=== PATIENT | male | born 1990 | race Hispanic/Latino ===

== ENCOUNTER 2023-06-12 09:07 | Emergency (ER) | payer OTHER ==
[2023-06-12 09:45] LABS: Absolute Lymphocytes (CBC) 1.9 K/uL (0.7-4.9); Hematocrit 46.7 % (39.6-49.0); Lymphocytes % 12.5 % (15.3-44.8); MCV 80.7 fL (80-100); MPV 7.7 fL (7.6-11.3); Platelets 320 thou/uL (152-406); RBC Red Blood Cell Count 5.79 M/uL (4.33-5.43)
[2023-06-12 09:58] LABS: Potassium 3.5 mEq/L (3.5-5.1)
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
[2023-06-12] MEDS ORDERED: DERMABOND SKIN ADHESIVE TOP ONE (10:31)
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
[2023-06-12] MEDS ORDERED: TDAP (DIPHTH,PERTUSS(ACELL),TET VAC) 0.5 ML VIAL IMVAC ONE (11:16)
--- NOTE | 2023-06-12 12:13 | RAD REPORT ---
EXAM DESCRIPTION: RAD - Elbow Left 2 View - 06/12/2023 10:24 am CLINICAL HISTORY: PAIN COMPARISON: No comparisons TECHNIQUE: Left elbow, 3 views. FINDINGS: No fracture is identified. No elevated posterior fat pad to suggest an effusion. There is no dislocation or periosteal reaction noted. No foreign body or other soft tissue abnormalit y. IMPRESSION: Negative left elbow examination.
--- NOTE | 2023-06-12 12:14 | RAD REPORT ---
EXAM DESCRIPTION: RAD - Forearm Left - 06/12/2023 10:23 am CLINICAL HISTORY: Pain;Swelling COMPARISON: No comparisons TECHNIQUE: Left forearm, 2 views. FINDINGS: No fracture is identified. There is no dislocation or periosteal reaction noted. No foreign body. Soft tissue swelling and irregularity along the anterior forearm. IMPRESSION: Soft tissue swelling as above without acute osseous abnormality.
== END 2023-06-12 11:14 | disposition home or self-care (01) ==
LOC: ER 09:07
PROC: 0HQ1XZZ Repair Face Skin, External Approach (ICD-10-PCS; principal; 2023-06-12)
DX: S01.112A Laceration without foreign body of left eyelid and periocular area, initial encounter (principal); M25.522 Pain in left elbow; Z23 Encounter for immunization
CPT/HCPCS: 36415; 70450; 70486; 71250; 72125; 76377; 80048; 85025; 86850; 86900; 86901; 90471; 99284